=== PATIENT | male | born 1955 | race Caucasian/White ===

== ENCOUNTER → 2021-06-15 | Outpatient (CLI) | payer MEDICARE ==
[~2021-06-15] VITALS: Ht 167.6 cm; Wt 77.0 kg
[2021-06-15 10:47] VITALS: BP 120/70
== END | disposition home or self-care (01) ==
LOC: SRCNTR 10:30
PROVIDERS: ATTEND Internal Medicine Critical Care Medicine
DX: E78.5 Hyperlipidemia, unspecified (principal); E03.9 Hypothyroidism, unspecified; C02.9 Malignant neoplasm of tongue, unspecified
CPT/HCPCS: G0463

== ENCOUNTER → 2021-07-16 | Outpatient (CLI) | payer MEDICARE ==
[~2021-07-16] VITALS: Ht 167.6 cm; Wt 82.0 kg
[2021-07-16 10:27] VITALS: BP 115/74
== END | disposition home or self-care (01) ==
LOC: SRCNTR 09:59
PROVIDERS: ATTEND Internal Medicine Critical Care Medicine
DX: E78.5 Hyperlipidemia, unspecified (principal); E03.9 Hypothyroidism, unspecified; R91.8 Other nonspecific abnormal finding of lung field; C02.9 Malignant neoplasm of tongue, unspecified
CPT/HCPCS: G0463; Z7500